=== PATIENT | female | born 1980 | race Caucasian/White ===

== ENCOUNTER 2021-09-14 12:51 | Emergency (ER) | payer SELFPAY ==
[~2021-09-14] VITALS: Ht 167.6 cm; Wt 70.0 kg
[2021-09-14] MEDS ORDERED: SODIUM CHLORIDE 0.9% 1,000 ML IV ONE (14:30)
[2021-09-14] MEDS ORDERED: DIPHENHYDRAMINE 50MG/ML VIAL IM ONE (18:00)
[2021-09-14] MEDS ORDERED: MIDAZOLAM HCL 2 MG/2 ML VIAL IM ONE (18:00)
[2021-09-14] MEDS ORDERED: HALOPERIDOL LACTATE 5MG/ML VIAL IM ONE (18:00)
[2021-09-14 18:05] LABS: BASOPHILS % 0.7 % (0.0-2.0); EOSINOPHILS % 9.9 % (0.0-5.0); HEMATOCRIT. 34.6 % (36.0-48.0); HEMOGLOBIN. 11.6 g/dL (12.0-16.0); MEAN CORPUSCULAR HEMOGLOBIN 30.7 pg (28.0-32.0); MEAN CORPUSCULAR VOLUME 91.2 fL (81.0-99.0); MEAN PLATELET VOLUME 9.4 fl (7.4-10.4); MONOCYTES % 10.9 % (2.0-8.0); NEUTROPHILS % 48.5 % (40.0-76.0); PLATELET 392 x1000/uL (130-400); RED CELL DISTRIBUTION WIDTH 14.5 % (11.6-14.6)
[2021-09-14 18:17] LABS: CHLORIDE 106 mEq/L (98-107)
[2021-09-14 18:26] LABS: ETHANOL BLOOD < 10 mg/dL
[2021-09-14 18:29] LABS: HCG SCREEN NEGATIVE
[2021-09-15 02:57] VITALS: BP 127/82
== END 2021-09-15 03:01 | disposition home or self-care (01) ==
LOC: ER 12:51
DX: F98.9 Unspecified behavioral and emotional disorders with onset usually occurring in childhood and adolescence (principal)
CPT/HCPCS: 36415; 80053; 80307; 80320; 80329; 83735; 84703; 85025; 93005; 99284; J7030; G0480

== ENCOUNTER 2021-09-15 20:15 | Emergency (ER) | payer SELFPAY ==
[~2021-09-15] VITALS: Ht 182.9 cm; Wt 86.0 kg
[2021-09-15] MEDS ORDERED: IBUPROFEN 200MG TABLET PO ONE (21:30)
[2021-09-16 00:20] VITALS: BP 112/67
== END 2021-09-16 00:37 | disposition home or self-care (01) ==
LOC: ER 20:15
DX: R25.3 Fasciculation (principal); F15.10 Other stimulant abuse, uncomplicated
CPT/HCPCS: 99283

== ENCOUNTER 2021-09-16 17:11 | Emergency (ER) | payer MEDICAID ==
[~2021-09-16] VITALS: Ht 188 cm; Wt 87.0 kg
[2021-09-16 17:17] VITALS: BP 146/117
== END 2021-09-16 23:13 | disposition home or self-care (01) ==
LOC: ER 17:11
DX: R07.89 Other chest pain (principal); Z00.00 Encounter for general adult medical examination without abnormal findings; F15.10 Other stimulant abuse, uncomplicated
CPT/HCPCS: 99281

== ENCOUNTER 2021-09-17 09:38 | Emergency (ER) | payer MEDICAID ==
[~2021-09-17] VITALS: Ht 170.2 cm; Wt 79.0 kg
[2021-09-17 09:45] VITALS: BP 122/86
== END 2021-09-17 11:40 | disposition home or self-care (01) ==
LOC: ER 09:38
DX: F30.9 Manic episode, unspecified (principal); F15.10 Other stimulant abuse, uncomplicated
CPT/HCPCS: 99281